=== PATIENT | female | born 1945 | race Hispanic/Latino ===

== ENCOUNTER 2018-01-03 19:07 | Emergency (ER) | payer OTHER ==
[~2018-01-03] VITALS: Ht 152.4 cm; Wt 89.8 kg
[2018-01-03] MEDS ORDERED: DIATRIZOATE MEGL/DIATRIZOA SOD 30 ML BTL PO ONE (19:53)
[2018-01-03 20:28] LABS: BASOPHILS % 0.1 % (0.0-1.0); EOSINOPHILS # (AUTO) 0.2 (0.0-0.4); EOSINOPHILS % 2.3 % (0.0-6.0); HEMATOCRIT 41.2 % (34.2-44.1); LYMPHOCYTES # (AUTO) 0.8 (1.0-3.2); LYMPHOCYTES % 8.7 % (18.0-39.1); MEAN CORPUSCULAR HGB CONC 31.6 g/dL (31-35); MONOCYTES # (AUTO) 0.5 (0.2-0.8); MONOCYTES % 6.2 % (4.4-11.3); NEUTROPHILS # (AUTO) 7.2 (2.1-6.9); NEUTROPHILS % 82.5 % (38.7-80.0); PLATELET COUNT 232 x10e3/uL (140-360); RED BLOOD COUNT 4.48 x10e6/uL (3.6-5.1); RED CELL DISTRIBUTION WIDTH 14.4 % (11.7-14.4)
[2018-01-03 20:43] LABS: BILIRUBIN,URINE NEGATIVE (NEGATIVE); CLARITY,URINE SL CLOUDY (CLEAR); COLOR,URINE YELLOW (YELLOW); KETONES,URINE NEGATIVE (NEGATIVE); LEUKOCYTE ESTERASE ,URINE TRACE (NEGATIVE); NITRITE,URINE NEGATIVE (NEGATIVE); PROTEIN,URINE DIPSTICK NEGATIVE (NEGATIVE); URINE UROBILINOGEN 0.2 mg/dL (0.2 - 1)
[2018-01-03 20:51] LABS: AMYLASE 77 U/L (25-125); LIPASE 27 U/L (8-78)
[2018-01-03 20:53] LABS: ALANINE AMINOTRANSFERASE 16 IU/L (0-55); ALBUMIN 3.5 g/dL (3.5-5.0); ALBUMIN/GLOBULIN RATIO 0.7 (0.8-2.0); ALKALINE PHOSPHATASE 103 IU/L (40-150); ANION GAP 14.4 mmol/L (8-16); BLOOD UREA NITROGEN 15 mg/dL (7-26); BUN/CREATININE RATIO 21 (6-25); CALCIUM 8.8 mg/dL (8.4-10.2); CARBON DIOXIDE 25 mmol/L (22-29); CHLORIDE 104 mmol/L (98-107); CREATININE, SERUM 0.72 mg/dL (0.57-1.11); EST GLOMERULAR FILTRATION RATE > 60 ML/MIN (60-); GLUCOSE 96 mg/dL (74-118); POTASSIUM 4.4 mmol/L (3.5-5.1); SODIUM 139 mmol/L (136-145)
[2018-01-03 20:57] LABS: EPITHELIAL CELLS,URINE RARE /LPF
--- NOTE | 2018-01-03 22:07 | Diagnostic Imaging Report ---
EXAM: CT Abdomen and Pelvis WITH contrast INDICATION: Diverticulitis, diarrhea COMPARISON: None. TECHNIQUE: Abdomen and pelvis were scanned utilizing a multidetector helical scanner from the lung base to the pubic symphysis after administration of IV contrast. Coronal and sagittal reformations were obtained. Routine protocol was performed. Scan was performed when during portal venous phase. IV CONTRAST: 100 mL of Isovue-370 ORAL CONTRAST: Gastrografin RADIATION DOSE: Total DLP: 728.78 mGy*cm Estimated effective dose: (DLP x 0.015 x size factor) mSv COMPLICATIONS: None FINDINGS: LINES and TUBES: None. LOWER THORAX: Large sliding hiatal hernia. HEPATOBILIARY: No focal hepatic lesions. No biliary ductal dilation. GALLBLADDER: No radio-opaque stones or sludge. No wall thickening. SPLEEN: No splenomegaly. PANCREAS: No focal masses or ductal dilatation. ADRENALS: No adrenal nodules KIDNEYS/URETERS: Kidneys enhance symmetrically. No hydronephrosis. Bilateral large renal simple cysts. 4 mm stone in the interpolar right renal collecting system GI TRACT: No abnormal distention, wall thickening, or evidence of bowel obstruction. There are diverticula within the colon without evidence of diverticulitis. Appendix is not clearly identified. There is however no fat stranding or adenopathy in the right lower quadrant to suggest appendicitis. PELVIC ORGANS/BLADDER: Unremarkable. LYMPH NODES: No lymphadenopathy. VESSELS: Unremarkable. PERITONEUM / RETROPERITONEUM: No free air or fluid. BONES: There are degenerative changes in the lumbar spine. Grade 1 anterolisthesis of L4 on L5. SOFT TISSUES: Unremarkable. IMPRESSION: 1. There is a 4 mm stone in the right renal collecting system. 2. Bilateral simple renal cysts. 3. Large sliding hiatal hernia. 4. Degenerative changes of the lower lumbar spine. 5. Diverticulosis without evidence of acute diverticulitis. Signed by: Dr. Edgar Garnett M.D. on 01/03/2018 10:04 PM
[2018-01-03] MEDS ORDERED: SODIUM CHLORIDE 0.9% 50ML 50 ML ONE (22:38)
[2018-01-03] MEDS ORDERED: IOPAMIDOL 370 MG/ML 200 ML INFUS..BTL INJ ONE (22:38)
== END 2018-01-04 00:31 | disposition home or self-care (01) ==
LOC: ER 19:07
DX: R19.7 Diarrhea, unspecified (principal); I10 Essential (primary) hypertension; E03.9 Hypothyroidism, unspecified; K21.9 Gastro-esophageal reflux disease without esophagitis; N20.0 Calculus of kidney; N28.1 Cyst of kidney, acquired; K44.9 Diaphragmatic hernia without obstruction or gangrene; K57.30 Diverticulosis of large intestine without perforation or abscess without bleeding; M47.816 Spondylosis without myelopathy or radiculopathy, lumbar region
CPT/HCPCS: 36415; 74177; 80053; 81001; 82150; 83690; 85025; 99284; Q9967

== ENCOUNTER 2020-07-25 18:51 | Observation (INO) | payer OTHER ==
[~2020-07-25] VITALS: Ht 152.4 cm; Wt 89.8 kg
[2020-07-25] MEDS ORDERED: ASPIRIN 81 MG CHEW TAB PO ONE (19:00)
[2020-07-25 19:12] LABS: BASOPHILS # (AUTO) 0.1 (0.0-0.1); BASOPHILS % 0.6 % (0.0-1.0); EOSINOPHILS # (AUTO) 0.2 (0.0-0.4); EOSINOPHILS % 2.5 % (0.0-6.0); HEMATOCRIT 40.7 % (34.2-44.1); HEMOGLOBIN 12.8 g/dL (12.0-16.0); LYMPHOCYTES # (AUTO) 2.5 (1.0-3.2); LYMPHOCYTES % 29.2 % (18.0-39.1); MEAN CORPUSCULAR HEMOGLOBIN 28.4 pg (28-32); MEAN CORPUSCULAR HGB CONC 31.4 g/dL (31-35); MEAN CORPUSCULAR VOLUME 90.2 fL (81-99); MONOCYTES # (AUTO) 0.5 (0.2-0.8); MONOCYTES % 5.6 % (4.4-11.3); NEUTROPHILS # (AUTO) 5.2 (2.1-6.9); NEUTROPHILS % 61.5 % (38.7-80.0); PLATELET COUNT 223 x10e3/uL (140-360); RED BLOOD COUNT 4.51 x10e6/uL (3.6-5.1); RED CELL DISTRIBUTION WIDTH 14.4 % (11.7-14.4)
[2020-07-25 21:03] LABS: ALANINE AMINOTRANSFERASE 14 IU/L (0-55); ALBUMIN 3.5 g/dL (3.5-5.0); ALBUMIN/GLOBULIN RATIO 0.7 (0.8-2.0); ALKALINE PHOSPHATASE 112 IU/L (40-150); BLOOD UREA NITROGEN 21 mg/dL (7-26); BUN/CREATININE RATIO 28 (6-25); CALCIUM 9.4 mg/dL (8.4-10.2); CARBON DIOXIDE 26 mmol/L (22-29); CHLORIDE 104 mmol/L (98-107); CREATINE KINASE 53 IU/L (29-168); CREATININE, SERUM 0.76 mg/dL (0.57-1.11); EST GLOMERULAR FILTRATION RATE > 60 ML/MIN (60-); GLUCOSE 132 mg/dL (74-118); SODIUM 141 mmol/L (136-145)
[2020-07-25] MEDS ORDERED: SODIUM CHLORIDE 0.9% 50ML 50 ML ONE (21:17)
[2020-07-25] MEDS ORDERED: IOPAMIDOL 370 MG/ML 200 ML INFUS..BTL INJ ONE (21:18)
[2020-07-26] VITALS (10 sets, daily range): BP systolic 107–131; BP diastolic 54–67
[2020-07-26] MEDS ORDERED: ATENOLOL50 MG PO (02:59)
[2020-07-26] MEDS ORDERED: BACLOFEN10 MG PO (02:59)
[2020-07-26] MEDS ORDERED: LEVOTHYROXINE88 MCG PO (02:59)
[2020-07-26] MEDS ORDERED: FAMOTIDINE20 MG PO (02:59)
[2020-07-26] MEDS ORDERED: LISINOPRIL10 MG PO (02:59)
[2020-07-26] MEDS ORDERED: OMEPRAZOLE40 MG PO (02:59)
[2020-07-26 05:55] LABS: BASOPHILS # (AUTO) 0.1 (0.0-0.1); BASOPHILS % 0.7 % (0.0-1.0); EOSINOPHILS # (AUTO) 0.3 (0.0-0.4); EOSINOPHILS % 3.5 % (0.0-6.0); HEMATOCRIT 39.4 % (34.2-44.1); HEMOGLOBIN 12.1 g/dL (12.0-16.0); LYMPHOCYTES # (AUTO) 2.3 (1.0-3.2); LYMPHOCYTES % 31.4 % (18.0-39.1); MEAN CORPUSCULAR HEMOGLOBIN 27.5 pg (28-32); MEAN CORPUSCULAR HGB CONC 30.7 g/dL (31-35); MEAN CORPUSCULAR VOLUME 89.5 fL (81-99); MONOCYTES # (AUTO) 0.6 (0.2-0.8); MONOCYTES % 7.4 % (4.4-11.3); NEUTROPHILS # (AUTO) 4.2 (2.1-6.9); NEUTROPHILS % 56.7 % (38.7-80.0); PLATELET COUNT 222 x10e3/uL (140-360); RED CELL DISTRIBUTION WIDTH 14.5 % (11.7-14.4)
[2020-07-26 06:14] LABS: ALANINE AMINOTRANSFERASE 11 IU/L (0-55); ALBUMIN 3.2 g/dL (3.5-5.0); ALBUMIN/GLOBULIN RATIO 0.8 (0.8-2.0); ALKALINE PHOSPHATASE 97 IU/L (40-150); ANION GAP 12.3 mmol/L (8-16); BLOOD UREA NITROGEN 19 mg/dL (7-26); BUN/CREATININE RATIO 28 (6-25); CALCIUM 8.5 mg/dL (8.4-10.2); CARBON DIOXIDE 27 mmol/L (22-29); CHLORIDE 104 mmol/L (98-107); CREATININE, SERUM 0.68 mg/dL (0.57-1.11); EST GLOMERULAR FILTRATION RATE > 60 ML/MIN (60-); GLUCOSE 94 mg/dL (74-118); POTASSIUM 4.3 mmol/L (3.5-5.1); SODIUM 139 mmol/L (136-145)
[2020-07-26 06:39] LABS: CREATINE KINASE 41 IU/L (29-168)
[2020-07-26] MEDS: BACLOFEN 10 MG TAB PO PRN ×2 (11:29→20:51)
[2020-07-26] MEDS: FAMOTIDINE 20 MG TAB PO SCH ×2 (11:30→16:10)
[2020-07-26] MEDS: HEPARIN SOD (PORCINE) 5,000 UNIT/ML VIAL SC SCH ×2 (12:30→20:51)
[2020-07-26] MEDS: FUROSEMIDE INJ 10 MG/ML 4 ML VIAL IV SCH (13:15)
[2020-07-26 14:56] LABS: CHOL/HDL RATIO 3.1 (3.0-3.6)
[2020-07-26 17:25] LABS: CREATINE KINASE 45 IU/L (29-168)
[2020-07-27 00:30] VITALS: BP 120/58
[2020-07-27 05:21] VITALS: BP 128/50
[2020-07-27] MEDS ORDERED: LEVOTHYROXINE SODIUM 88 MCG TAB PO SCH (06:00)
[2020-07-27] MEDS: FAMOTIDINE 20 MG TAB PO SCH (07:30)
[2020-07-27 07:45] VITALS: BP 131/51
[2020-07-27 08:16] VITALS: BP 131/51
[2020-07-27] MEDS ORDERED: LISINOPRIL 10 MG TAB PO SCH (09:00)
[2020-07-27] MEDS ORDERED: ATENOLOL 50 MG TAB PO SCH (09:00)
[2020-07-27] MEDS ORDERED: PANTOPRAZOLE SOD 40 MG TABEC PO SCH (09:00)
[2020-07-27] MEDS: HEPARIN SOD (PORCINE) 5,000 UNIT/ML VIAL SC SCH (09:00)
[2020-07-27] MEDS: FUROSEMIDE INJ 10 MG/ML 4 ML VIAL IV SCH (09:00)
[2020-07-27] MEDS ORDERED: REGADENOSON 0.4 MG/5 ML SYR IV ONE (09:45)
[2020-07-27 11:41] VITALS: BP 128/65
[2020-07-27 15:47] VITALS: BP 109/55
== END 2020-07-27 16:40 | disposition home or self-care (01) ==
LOC: ER 19:02 → ERHOLD 22:33 → IMCU 07-26 02:04 → MED/SURG 07-26 10:28
PROVIDERS: ADMIT Internal Medicine; ATTEND Internal Medicine
DX: R07.89 Other chest pain (principal); I10 Essential (primary) hypertension; E03.9 Hypothyroidism, unspecified; K21.9 Gastro-esophageal reflux disease without esophagitis; Z88.0 Allergy status to penicillin; Z96.653 Presence of artificial knee joint, bilateral; Z82.49 Family history of ischemic heart disease and other diseases of the circulatory system; Z83.3 Family history of diabetes mellitus; N63.20 Unspecified lump in the left breast, unspecified quadrant; N63.10 Unspecified lump in the right breast, unspecified quadrant; R91.8 Other nonspecific abnormal finding of lung field; I25.10 Atherosclerotic heart disease of native coronary artery without angina pectoris; I51.7 Cardiomegaly; Z20.822 Contact with and (suspected) exposure to COVID-19
CPT/HCPCS: 36415 ×2; 71045; 71260; 78452; 80053 ×2; 80061; 82550 ×2; 82553 ×2; 83880; 84484 ×2; 85025 ×2; 85379; 93005; 93017; 93306; 93970; 99284; A9502; G0378 ×3; J1644; J1940; J2785; Q9967; U0002

== ENCOUNTER 2023-07-23 17:56 | Emergency (ER) | payer MEDICARE, OTHER ==
[~2023-07-23] VITALS: Ht 152.4 cm; Wt 89.8 kg
[~2023-07-23 17:56] MED LIST: ATENOLOL50 MG PO; BACLOFEN10 MG PO; FAMOTIDINE20 MG PO; LEVOTHYROXINE88 MCG PO; LISINOPRIL10 MG PO; OMEPRAZOLE40 MG PO
[2023-07-23 18:50] LABS: COLOR,URINE RED (YELLOW)
[2023-07-23 18:53] LABS: CLARITY,URINE TURBID (CLEAR)
[2023-07-23 19:04] LABS: LEUKOCYTE ESTERASE ,URINE MODERATE (NEGATIVE); NITRITE,URINE NEGATIVE (NEGATIVE)
[2023-07-23 19:05] LABS: BILIRUBIN,URINE MODERATE (NEGATIVE); GLUCOSE, URINE NEGATIVE (NEGATIVE); KETONES,URINE NEGATIVE (NEGATIVE); PH,URINE 6 (5 - 7); PROTEIN,URINE DIPSTICK 2+ (NEGATIVE); URINE UROBILINOGEN 0.2 mg/dL (0.2 - 1)
[2023-07-23 19:07] LABS: BACTERIA,URINE FEW /HPF; RBC,URINE >50 /HPF (0-5)
[2023-07-23 20:21] LABS: BASOPHILS % 0.3 % (0.0-1.0); HEMATOCRIT 38.8 % (34.2-44.1); HEMOGLOBIN 12.4 g/dL (12.0-16.0); LYMPHOCYTES % 13.2 % (18.0-39.1); MEAN CORPUSCULAR HEMOGLOBIN 28.6 pg (28-32); MEAN CORPUSCULAR VOLUME 89.4 fL (81-99); MONOCYTES # (AUTO) 1.2 (0.2-0.8); MONOCYTES % 7.7 % (4.4-11.3); NEUTROPHILS # (AUTO) 11.8 (2.1-6.9); NEUTROPHILS % 78.5 % (38.7-80.0); PLATELET COUNT 302 x10e3/uL (140-360); RED BLOOD COUNT 4.34 x10e6/uL (3.6-5.1); RED CELL DISTRIBUTION WIDTH 14.5 % (11.7-14.4); WHITE BLOOD COUNT 14.97 x10e3/uL (4.8-10.8)
[2023-07-23 20:32] LABS: INR 1.01; PARTIAL THROMBOPLASTIN TIME 24.3 seconds (23.8-35.5)
[2023-07-23 20:38] LABS: ANION GAP 15.4 mmol/L (8-16); CALCIUM 9.7 mg/dL (8.4-10.2); CREATININE, SERUM 0.78 mg/dL (0.57-1.11); POTASSIUM 4.4 mmol/L (3.5-5.1)
[2023-07-23] MEDS ORDERED: CEFDINIR300 MG PO (23:33)
[2023-07-23 23:58] VITALS: O2SAT 97
[2023-07-24] MEDS ORDERED: IOPAMIDOL 370 MG/ML 100 ML INFUS..BTL INJ ONE (10:45)
[2023-07-24] MEDS ORDERED: SODIUM CHLORIDE 0.9% INJ 250 ML BAG ONE (10:45)
== END 2023-07-24 00:20 | disposition home or self-care (01) ==
LOC: ER 18:23
DX: R30.0 Dysuria (principal); N30.91 Cystitis, unspecified with hematuria; K57.90 Diverticulosis of intestine, part unspecified, without perforation or abscess without bleeding; K44.9 Diaphragmatic hernia without obstruction or gangrene; I10 Essential (primary) hypertension; E03.9 Hypothyroidism, unspecified; E78.5 Hyperlipidemia, unspecified; K21.9 Gastro-esophageal reflux disease without esophagitis
CPT/HCPCS: 36415; 74178; 80048; 81001; 85025; 85610; 85730; 87086; 87186; 99284; J7050; Q9967

== ENCOUNTER 2024-07-16 23:01 | Emergency (ER) | payer MEDICARE ==
[~2024-07-16] VITALS: Ht 152.4 cm; Wt 92.5 kg
[~2024-07-16 23:01] MED LIST changes: +CEFDINIR300 MG PO
[2024-07-16] MEDS: KETOROLAC TROMETHAMINE 30 MG/ML VIAL IM STA (23:57)
[2024-07-17] MEDS ORDERED: ULTRAM 50MG50 MG PO (00:38)
[2024-07-17 01:00] VITALS: PULSE 71; RESP 18; TEMP 98.2; O2SAT 100
== END 2024-07-17 01:05 | disposition home or self-care (01) ==
LOC: ER 23:05
DX: S52.531A Colles' fracture of right radius, initial encounter for closed fracture (principal); W18.39XA Other fall on same level, initial encounter; Y92.89 Other specified places as the place of occurrence of the external cause; I10 Essential (primary) hypertension; E78.5 Hyperlipidemia, unspecified; E03.9 Hypothyroidism, unspecified; K21.9 Gastro-esophageal reflux disease without esophagitis
CPT/HCPCS: 29105; 73090; 99284; J1885